=== PATIENT | male | born 1955 | race Hispanic/Latino ===

== ENCOUNTER 2019-08-18 20:42 | Emergency (ER) | payer OTHER ==
[2019-08-18] MEDS ORDERED: TETANUS/DIPHTHERIA TOXOID [ADULT] 0.5 ML VIAL IM ONE (20:54)
[2019-08-18] MEDS ORDERED: LIDOCAINE HCL 1% 20 ML VIAL ONE (21:00)
[2019-08-18] MEDS ORDERED: OCTYL 2-CYANOACRYLATE 1 EACH TP ONE (21:06)
== END 2019-08-18 21:41 | disposition home or self-care (01) ==
LOC: EDH 20:42
DX: S51.811A Laceration without foreign body of right forearm, initial encounter (principal); I10 Essential (primary) hypertension; X58.XXXA Exposure to other specified factors, initial encounter; Y93.89 Activity, other specified; Y92.096 Garden or yard of other non-institutional residence as the place of occurrence of the external cause; Y99.8 Other external cause status
CPT/HCPCS: 12031; 12041; 73090; 90471; 90714

== ENCOUNTER → 2020-11-21 | Outpatient (CLI) | payer OTHER | END | disposition home or self-care (01) | LOC: OIH 16:10 | PROVIDERS: ATTEND Family Medicine | DX: Z13.6 Encounter for screening for cardiovascular disorders (principal) | CPT/HCPCS: 75571 ==

== ENCOUNTER 2023-02-04 05:49 | Day surgery (SDC) | payer OTHER ==
[2023-01-31 11:05] LABS: APPEARANCE,URINE CLEAR (CLEAR); BILIRUBIN,URINE NEGATIVE (NEGATIVE); COLOR,URINE LIGHT-YELLOW (YELLOW); GLUCOSE, URINE (UA) NEGATIVE (NEGATIVE); KETONES,URINE NEGATIVE (NEGATIVE); LEUKOCYTE ESTERASE ,URINE NEGATIVE Leu/uL (NEGATIVE); NITRATE,URINE NEGATIVE (NEGATIVE); PH,URINE 6.5 (5.0-8.0); PROTEIN,URINE NEGATIVE (NEGATIVE); UROBILINOGEN,URINE 0.2 mg/dL (0.2-1.0)
[2023-01-31 11:10] LABS: CREATININE 0.7 mg/dL (0.5-1.5); POTASSIUM 4.3 mmol/L (3.5-5.1)
[2023-01-31 11:11] LABS: BASOPHILS % (AUTO) 0.2 % (0.0-5.0); EOSINOPHILS % (AUTO) 0.3 % (0.0-8.0); HEMATOCRIT 41.9 % (42-54); LYMPHOCYTES % (AUTO) 15.9 % (21.0-51.0); MEAN CORPUSCULAR HEMOGLOBIN 30.9 pg (27.0-33.0); MEAN CORPUSCULAR HGB CONC 34.4 g/dL (32.0-36.0); MEAN CORPUSCULAR VOLUME 89.9 fL (79-99); MONOCYTES % (AUTO) 6.5 % (3.0-13.0); NEUTROPHILS % (AUTO) 75.4 % (40.0-77.0); PLATELET COUNT (AUTO) 163 K/uL (130-400); RED BLOOD CELL COUNT(AUTO) 4.66 MIL/uL (4.50-6.20); RED CELL DISTRIBUTION WIDTH 11.2 % (11.0-15.5)
[2023-01-31 11:12] VITALS: BP 183/83
[2023-01-31 11:36] LABS: INR 0.97 (0.85-1.15); PROTHROMBIN TIME 10.6 SEC (9.6-11.6)
[2023-01-31 11:38] LABS: PARTIAL THROMBOPLASTIN TIME 29.3 SEC (26.3-35.5)
[2023-01-31 11:52] LABS: B-TYPE NATRIURETIC PEPTIDE 22 pg/mL (0-100)
[2023-02-04] VITALS (12 sets, daily range): BP systolic 111–161; BP diastolic 56–78
[~2023-02-04] VITALS: Ht 154.9 cm; Wt 67.2 kg
[~2023-02-04 05:49] MED LIST: AEC81 PO; AMLO-257 PO; ATOR10 PO; CLON0.1T PO; IRBE300T18 PO
[2023-02-04] MEDS ORDERED: 0.9%NACL 1000ML 1,000 ML IV ONE (06:04)
[2023-02-04] MEDS ORDERED: LORA10CA PO (06:54)
[2023-02-04] MEDS ORDERED: ACET-2113 PO (06:54)
[2023-02-04] MEDS ORDERED: LIDOCAINE HCL 400MG/20ML VIAL ONE (07:08)
[2023-02-04] MEDS ORDERED: FENTANYL CITRATE PF 50 MCG/1 ML 2ML VIAL ONE (07:08)
[2023-02-04] MEDS ORDERED: IOHEXOL-350 50ML VIAL IV ONE (07:09)
[2023-02-04] MEDS ORDERED: IOHEXOL-350 75 ML VIAL IV ONE (07:09)
[2023-02-04] MEDS ORDERED: HEPARIN 10,000 UNIT/10ML (1,000 UNIT/ML) VIAL ONE (07:09)
[2023-02-04] MEDS ORDERED: NITROGLYCERIN 50MG VIAL ONE (07:09)
[2023-02-04] MEDS ORDERED: BIVALIRUDIN 250 MG/VIAL IV ONE (07:09)
[2023-02-04] MEDS ORDERED: MIDAZOLAM HCL 1 MG/ML 2ML VIAL ONE (07:09)
[2023-02-04] MEDS ORDERED: ATROPINE 1MG SYG IVP ONE (07:25)
[2023-02-04] MEDS ORDERED: LABETALOL 20MG SYG IV ONE (07:58)
[2023-02-04] MEDS ORDERED: 0.9%NACL 1000ML 1,000 ML IV SCH (08:30)
[2023-02-04 09:21] LABS: CHOLESTEROL 80 mg/dL (<200); HDL CHOLESTEROL 51 mg/dL (29-71); LDL DIRECT 27 mg/dL (0-99); TRIGLYCERIDES 32 mg/dL (30-200)
[2023-02-04] MEDS ORDERED: ACETAMINOPHEN 500 MG TABLET ONE (09:55)
[2023-02-04] MEDS ORDERED: ACETAMINOPHEN 500 MG TABLET PO ONE (10:00)
== END 2023-02-04 13:32 | disposition home or self-care (01) ==
LOC: DAH 05:49
PROVIDERS: ATTEND Internal Medicine Cardiovascular Disease
DX: I25.118 Atherosclerotic heart disease of native coronary artery with other forms of angina pectoris (principal); I10 Essential (primary) hypertension; I73.9 Peripheral vascular disease, unspecified; Z79.01 Long term (current) use of anticoagulants; Z79.899 Other long term (current) drug therapy; Z79.82 Long term (current) use of aspirin; Z72.89 Other problems related to lifestyle; Z82.49 Family history of ischemic heart disease and other diseases of the circulatory system; Z83.3 Family history of diabetes mellitus; Z98.41 Cataract extraction status, right eye; Z98.42 Cataract extraction status, left eye
CPT/HCPCS: 80048; 83880; 85025; 85610; 85730; 81001; 36415 ×2; 71045; 93005; 93458; 80061; 82948 ×2; C1894 ×3; C1760; J3010; J3490 ×2; J7030; J2250; J1644; Q9967 ×2; A4215; A4222; A4221; A4663; A4216; A4606; A4223 ×3; 96360; 96361; 99156; 99157; J0461; J0583